=== PATIENT | male | born 1930 | race American Indian/Alaskan Native ===

== ENCOUNTER 2016-10-18 12:41 | Outpatient (CLI) | payer MEDICARE ==
[2016-10-18] MEDS ORDERED: PROVENTIL IH ONE (12:55)
== END 2016-10-18 12:42 | disposition home or self-care (01) ==
LOC: PF 12:41
PROVIDERS: ATTEND Internal Medicine Cardiovascular Disease
DX: J44.9 Chronic obstructive pulmonary disease, unspecified (principal)
CPT/HCPCS: 94060; 94640

== ENCOUNTER 2017-04-30 16:28 | Inpatient (IN) | payer MEDICARE ==
[2017-04-30 17:32] LABS: Anion Gap 18 mmol/L; BUN/Creatinine Ratio 28.18; Blood Urea Nitrogen 31 mg/dL (9-20); Calcium 9.1 mg/dL (8.4-10.2); Carbon Dioxide 27 mmol/L (22-30); Chloride 104.2 mmol/L (98-107); Glucose 86 mg/dL (75-100); Potassium 4.7 mmol/L (3.6-5.0); Sodium 144 mmol/L (137-145)
[2017-04-30 17:43] LABS: Basophils % (Auto) 1.3 % (0.0-1.8); Eosinophils % (Auto) 3.7 % (0.0-4.3); Hematocrit 36.1 % (35.5-45.6); Hemoglobin 11.3 gm/dl (11.8-15.2); Mean Corpuscular HGB Conc 31 % (32-34); Mean Corpuscular Volume 76 fl (84-94); Platelet Count 169 K/mm3 (140-440); Red Blood Count 4.74 M/mm3 (3.65-5.03); Red Cell Distribution Width 16.7 % (13.2-15.2); White Blood Count 2.7 K/mm3 (4.5-11.0)
[2017-04-30 17:52] LABS: Mean Corpuscular Hemoglobin 24 pg (28-32)
--- NOTE | 2017-04-30 21:07 | Cat Scan Report ---
FINAL REPORT PROCEDURE: CT HEAD/BRAIN WO CON TECHNIQUE: Computerized tomography of the head was performed without contrast material. HISTORY: fall, head pain COMPARISON: No prior studies are available for comparison. FINDINGS: Skull and scalp: Normal. Paranasal sinuses: Normal. Ventricles and subarachnoid spaces: Normal. Cerebrum: There is no evidence of acute intracranial hemorrhage, hematoma, infarction, midline displacement or mass effect. Moderate atrophy and periventricular deep white matter changes. There are old lacunar infarctions of the basal ganglia bilaterally.. Cerebellum and brainstem: No evidence of hemorrhage, acute infarction or mass. Vasculature: Normal. Comments: None. IMPRESSION: There is no evidence of an acute intracranial process. Moderate atrophy and periventricular deep white matter changes. Old lacunar infarctions of both basal ganglia are noted.
[2017-04-30] MEDS ORDERED: TYLENOL PO ONE (21:23)
[2017-04-30] MEDS ORDERED: REGLAN IV ONE (22:13)
[2017-04-30] MEDS ORDERED: MORPHINE IV ONE (22:14)
[2017-04-30] MEDS ORDERED: NACL 0.45% 1000 ML 1,000 ML IV SCH (23:45)
--- NOTE | 2017-04-30 23:49 | History and Physical Report ---
History of Present Illness Chief complaint: I dont feel good, History of present illness: 86 YO Male with HTN, CVA, COPD, Dementia present to ED for evaluation. Pt unable to provide history, but history taken from daughter who is at bedside. Pt daughter states that patient has compalined of pain in his chest after his most recent fall. Pt has become increasingly weak and confused over the past 2 months with worsening symptoms over the past week. Pt admits to subjective fever , but no reports of chills, NVD, syncope, vertigo, seizures, skin rashes, head trauma, or recent ill contacts. Pt seen and evaluated in ED and found to have suprapubic tenderness on exam. Past History Past Medical History: COPD, hypertension, stroke Past Surgical History: hernia repair Social history: , Lives alone. denies: smoking, alcohol abuse, prescription drug abuse, IV drug use Family history: hypertension Medications and Allergies Allergies Allergy/AdvReac Type Severity Reaction Status Date / Time Penicillins AdvReac Rash Unverified 10/18/16 12:42 Home Medications Medication Instructions Recorded Confirmed Last Taken Type Albuterol Sulfate [Ventolin HFA] 2 puff IH Q6HR PRN 05/01/17 05/01/17 Unknown History Aspirin 81 mg PO DAILY 05/01/17 05/01/17 Unknown History Budesoni/Formotero 160-4.5(Nf) 2 puff IH DAILY 05/01/17 05/01/17 Unknown History [Symbicort 160-4.5 (Nf)] Metoprolol Xl [Metoprolol 100 mg PO QDAY 05/01/17 05/01/17 Unknown History SUCCINATE ER TAB] Simethicone [Gas Relief] 125 mg PO BID PRN 05/01/17 05/01/17 Unknown History Review of Systems ROS unobtainable: due to mental status Exam - Constitutional Vitals: Temp Pulse Resp BP Pulse Ox 97.3 F L 59 L 18 194/99 96 04/30/17 20:06 04/30/17 20:06 04/30/17 23:10 04/30/17 20:06 04/30/17 20:06 General appearance: Present: mild distress, cachectic, disheveled - EENT Eyes: Present: PERRL ENT: hearing intact, clear oral mucosa - Neck Neck: Present: supple, normal ROM - Respiratory Respiratory effort: normal Respiratory: bilateral: CTA - Cardiovascular Heart Sounds: Present: S1 & S2. Absent: rub, click - Extremities Extremities: pulses symmetrical, No edema Peripheral Pulses: within normal limits - Abdominal General gastrointestinal: Present: soft, non-tender, non-distended, normal bowel sounds Localized gastrointestinal: tender: suprapubic Male genitourinary: Present: normal - Integumentary Integumentary: Present: clear, warm, dry - Musculoskeletal Musculoskeletal: gait normal, strength equal bilaterally - Psychiatric Psychiatric: appropriate mood/affect, no intact judgment & insight, no memory intact - Neurologic Neurologic: CNII-XII intact, moves all extremities Results - Labs CBC & Chem 7: 04/30/17 17:00 04/30/17 17:00 Labs: Abnormal lab results 04/30/17 04/30/17 Range/Units 17:00 17:00 WBC 2.7 L (4.5-11.0) K/mm3 Hgb 11.3 L (11.8-15.2) gm/dl MCV 76 L (84-94) fl MCH 24 L (28-32) pg MCHC 31 L (32-34) % RDW 16.7 H (13.2-15.2) % [place] % (Auto) 12.8 H (0.0-7.3) % Lymph # 0.9 L (1.2-5.4) K/mm3 Seg Neutrophils # 1.3 L (1.8-7.7) K/mm3 BUN 31 H (9-20) mg/dL Assessment and Plan - Patient Problems (1) UTI (urinary tract infection) Current Visit: Yes Status: Acute Qualifiers: Urinary tract infection type: U Hematuria presence: H Indwelling urinary catheter type: I Encounter type: E Plan to address problem: IV abx, ivf, supportive care, (2) Toxic encephalopathy Current Visit: Yes Status: Acute Plan to address problem: IVF, treat uti, bmp in am (3) Severe malnutrition Current Visit: Yes Status: Acute Plan to address problem: encourage increased oral intake, (4) Debility Current Visit: Yes Status: Acute Plan to address problem: bed alarm, fall precautions, (5) Dementia Current Visit: Yes Status: Acute Qualifiers: Dementia type: D Alzheimer's disease onset: A Dementia behavioral disturbance: D Plan to address problem: Aircept qhs, (6) DVT prophylaxis Current Visit: Yes Status: Acute
[2017-04-30] MEDS ORDERED: PROVENTIL IH PRN (23:52)
--- NOTE | 2017-05-01 00:31 | Emergency Department Report ---
ED General Adult HPI - General Chief complaint: Chest Pain Stated complaint: CHEST PAIN/ LEFT ARM NUMB Time Seen by Provider: 04/30/17 20:16 Source: patient Mode of arrival: Ambulatory Limitations: No Limitations - History of Present Illness Initial comments: Patient is an 86-year-old male who presents with chest pain. Patient states that he's been having chest pain for the last 2 days pain is a 5 out 10 minutes looking in the middle of his chest nothing makes it better or worse. It is an achy type of pain it doesn't radiate. Chest pain occurred at rest and is not associated with shortness of breath. Patient states his headache occurred after he fell it as a 6 out of 10 located frontal portion of his head he has no blurry vision no nausea no vomiting. Patient also states that he's has a headache he fell 3 days ago and he has been having a lot more falls lately. Patient also complains of feeling weak. Severity scale (0 -10): 7 - Related Data Home Medications Medication Instructions Recorded Confirmed Last Taken Albuterol Sulfate [Ventolin HFA] 2 puff IH Q6HR PRN 05/01/17 05/01/17 Unknown Aspirin 81 mg PO DAILY 05/01/17 05/01/17 Unknown Budesoni/Formotero 160-4.5(Nf) 2 puff IH DAILY 05/01/17 05/01/17 Unknown [Symbicort 160-4.5 (Nf)] Metoprolol Xl [Metoprolol 100 mg PO QDAY 05/01/17 05/01/17 Unknown SUCCINATE ER TAB] Simethicone [Gas Relief] 125 mg PO BID PRN 05/01/17 05/01/17 Unknown Allergies Allergy/AdvReac Type Severity Reaction Status Date / Time Penicillins AdvReac Rash Unverified 10/18/16 12:42 ED Review of Systems ROS: Stated complaint: CHEST PAIN/ LEFT ARM NUMB Other details as noted in HPI Constitutional: weakness Eyes: denies: eye pain, eye discharge, vision change ENT: as per HPI Respiratory: no symptoms reported Cardiovascular: chest pain Endocrine: no symptoms reported Gastrointestinal: denies: abdominal pain, nausea, diarrhea Genitourinary: denies: urgency, dysuria Musculoskeletal: arthralgia Skin: denies: rash, lesions Neurological: headache Psychiatric: denies: anxiety, depression Hematological/Lymphatic: denies: easy bleeding, easy bruising ED Past Medical Hx - Past Medical History Previous Medical History?: Yes Hx Hypertension: Yes Hx CVA: Yes Hx COPD: Yes - Surgical History Past Surgical History?: Yes Additional Surgical History: hernia,back - Social History Smoking Status: Never Smoker Substance Use Type: Alcohol - Medications Home Medications: Home Medications Medication Instructions Recorded Confirmed Last Taken Type Albuterol Sulfate [Ventolin HFA] 2 puff IH Q6HR PRN 05/01/17 05/01/17 Unknown History Aspirin 81 mg PO DAILY 05/01/17 05/01/17 Unknown History Budesoni/Formotero 160-4.5(Nf) 2 puff IH DAILY 05/01/17 05/01/17 Unknown History [Symbicort 160-4.5 (Nf)] Metoprolol Xl [Metoprolol 100 mg PO QDAY 05/01/17 05/01/17 Unknown History SUCCINATE ER TAB] Simethicone [Gas Relief] 125 mg PO BID PRN 05/01/17 05/01/17 Unknown History ED Physical Exam - General Limitations: No Limitations General appearance: alert - Head Head exam: Present: atraumatic, normocephalic - Eye Eye exam: Present: normal appearance, PERRL, EOMI - ENT ENT exam: Present: normal exam - Neck Neck exam: Present: normal inspection - Respiratory Respiratory exam: Present: normal lung sounds bilaterally - Cardiovascular Cardiovascular Exam: Present: regular rate - GI/Abdominal GI/Abdominal exam: Present: soft. Absent: distended - Rectal Rectal exam: Present: deferred - Extremities Exam Extremities exam: Present: normal inspection - Back Exam Back exam: Present: normal inspection - Neurological Exam Neurological exam: Present: alert, oriented X3, CN II-XII intact - Psychiatric Psychiatric exam: Present: normal affect - Skin Skin exam: Present: warm ED Course Vital Signs 04/30/17 04/30/17 04/30/17 16:48 20:00 20:06 Temperature 97.9 F 97.3 F L Pulse Rate 70 59 L Respiratory 16 21 21 Rate Blood Pressure 154/98 Blood Pressure 194/99 [Left] O2 Sat by Pulse 99 96 96 Oximetry 04/30/17 04/30/17 21:32 23:10 Temperature Pulse Rate Respiratory 21 18 Rate Blood Pressure Blood Pressure [Left] O2 Sat by Pulse Oximetry - Reevaluation(s) Reevaluation #1: 05/01/17 00:35 Patient states that headache is better assess the patient that due to the frequent falls and his chest pain he will be admitted to the hospital. Patient understands and verbalizes understanding and agrees with plan. ED Medical Decision Making - Lab Data Result diagrams: 04/30/17 17:00 04/30/17 17:00 Laboratory Results - last 24 hr 04/30/17 04/30/17 04/30/17 17:00 17:00 22:25 WBC 2.7 L RBC 4.74 Hgb 11.3 L Hct 36.1 MCV 76 L MCH 24 L MCHC 31 L RDW 16.7 H Plt Count 169 Lymph % (Auto) 33.5 [place] % (Auto) 12.8 H Eos % (Auto) 3.7 Baso % (Auto) 1.3 Lymph # 0.9 L [place] # 0.3 Eos # 0.1 Baso # 0.0 Seg Neutrophils % 48.7 Seg Neutrophils # 1.3 L Sodium 144 Potassium 4.7 Chloride 104.2 Carbon Dioxide 27 Anion Gap 18 BUN 31 H Creatinine 1.1 Estimated GFR > 60 BUN/Creatinine Ratio 28.18 Glucose 86 Calcium 9.1 Troponin T < 0.010 < 0.010 - EKG Data 05/01/17 00:36 EKG shows sinus rhythm with marked sinus arrhythmia with LVH no ST segment elevations or T-wave inversions - Radiology Data Radiology results: report reviewed, image reviewed CT head shows no acute intracranial abnormality or patient has old lacunar infarctions. - Medical Decision Making Chief medical diagnosis: Intracranial bleed Differential diagnosis non-STEMI, metabolic abnormality, medication side effect , deconditioning, pneumonia, UTI We'll get CBC CMP troponin EKG CT head Patient's daughter states that patient lives by himself and has multiple falls. He is also still complaining of headache will admit patient for deconditioning Critical care attestation.: If time is entered above; I have spent that time in minutes in the direct care of this critically ill patient, excluding procedure time. ED Disposition Clinical Impression: Frequent falls, Uremia Headache Qualifiers: Headache type: post-traumatic Headache chronicity pattern: acute headache Intractability: not intractable Qualified Code(s): G44.319 - Acute post- traumatic headache, not intractable Disposition: DC-09 OP ADMIT IP TO THIS HOSP Is pt being admited?: Yes Does the pt Need Aspirin: No Condition: Stable Referrals: PRIMARY CARE, [Primary Care Provider] - 3-5 Days Time of Disposition: 00:47
[2017-05-01] MEDS ORDERED: NACL 0.45% 1000 ML 1,000 ML IV ONE (01:04)
[2017-05-01 01:35] LABS: Bilirubin,Urine NEG (Negative); Blood,Urine SM (Negative); Ketones,Urine NEG (Negative); Leukocyte Esterase,Urine NEG (Negative); Nitrite,Urine NEG (Negative); Protein,Urine <15 mg/dL mg/dL (Negative); Urobilinogen,Urine < 2.0 mg/dL (<2.0); WBC,Urine < 1.0 /HPF (0.0-6.0)
[2017-05-01] MEDS ORDERED: LEVAQUIN 500MG/100ML 500 MG/100 ML BAG IV SCH (10:00)
--- NOTE | 2017-05-01 13:54 | Progress Note ---
Subjective Date of service: 05/01/17 Interval history: Assessment and plan: Altered mental status: Unclear if this is new or baseline. Possibly worsened secondary to dehydration He is a poor historian and confused. I would stop antibiotic as there is no evidence of any UTI History of dementia: Alzheimer's versus vascular. Questionable history of old stroke. Patient moves all his extremities History of hypertension: Continue beta lizzie COPD: Continue albuterol neb treatments as needed. Continue Symbicort Leukopenia: Most likely this is his baseline. We will recheck CBC in the morning Dehydration: We will start on IV fluids and monitor his renal function Subjective: Patient is awake alert but quite confused. Not in any distress. Poor historian. Offers no specific complaints 11 point review of systems is negative Objective - Constitutional Vitals: Vital Signs - 12hr 05/01/17 05/01/17 05/01/17 02:08 07:45 10:00 Temperature 98.1 F Pulse Rate 70 Respiratory 18 18 Rate Blood Pressure 157/84 O2 Sat by Pulse 96 96 96 Oximetry 05/01/17 10:08 Temperature Pulse Rate Respiratory 16 Rate Blood Pressure O2 Sat by Pulse 95 Oximetry General appearance: Present: no acute distress - EENT Eyes: PERRL, EOM intact ENT: hearing intact, clear oral mucosa, no thrush - Neck Neck: supple, normal ROM - Respiratory Respiratory effort: normal Respiratory: bilateral: CTA - Cardiovascular Rhythm: regular Heart Sounds: Present: S1 & S2 Extremities: No edema - Gastrointestinal General gastrointestinal: Present: soft, non-tender. Absent: hepatomegaly, splenomegaly Rectal Exam: deferred - Integumentary Integumentary: clear - Musculoskeletal Musculoskeletal: strength equal bilaterally - Neurologic Neurologic: no focal deficits - Labs CBC & Chem 7: 04/30/17 17:00 04/30/17 17:00
[2017-05-01] MEDS: LOPRESSOR PO SCH ×2 (20:17→21:30)
[2017-05-01] MEDS: ARICEPT PO SCH (21:31)
[2017-05-01] MEDS: TYLENOL PO PRN (21:31)
[2017-05-02] MEDS ORDERED: ATIVAN IV ONE (05:12)
[2017-05-02 08:45] LABS: Hematocrit 34.9 % (35.5-45.6); Hemoglobin 11.2 gm/dl (11.8-15.2); Mean Corpuscular HGB Conc 32 % (32-34); Mean Corpuscular Volume 76 fl (84-94); Platelet Count 169 K/mm3 (140-440); Red Cell Distribution Width 16.3 % (13.2-15.2)
[2017-05-02 08:54] LABS: Mean Corpuscular Hemoglobin 24 pg (28-32)
[2017-05-02 09:03] LABS: Anion Gap 18 mmol/L; BUN/Creatinine Ratio 26.66; Blood Urea Nitrogen 24 mg/dL (9-20); Carbon Dioxide 24 mmol/L (22-30); Chloride 101.6 mmol/L (98-107); Glucose 80 mg/dL (75-100); Potassium 4.8 mmol/L (3.6-5.0); Sodium 139 mmol/L (137-145)
[2017-05-02] MEDS: LOPRESSOR PO SCH ×2 (09:12→22:42)
--- NOTE | 2017-05-02 10:16 | Progress Note ---
Assessment and Plan Assessment and plan: 6 YO Male with HTN, CVA, COPD, Dementia present to ED for evaluation. Pt unable to provide history, but history taken from daughter who is at bedside. Pt daughter states that patient has compalined of pain in his chest after his most recent fall. Pt has become increasingly weak and confused over the past 2 months with worsening symptoms over the past week. Pt admits to subjective fever , but no reports of chills, NVD, syncope, vertigo, seizures, skin rashes, head trauma, or recent ill contacts. Pt seen and evaluated in ED and found to have suprapubic tenderness on exam. Metabolic Encephalopathy: Probably baseline due to Dementia. Possibly worsened secondary to dehydration He is a poor historian and confused. no further indication abx History of dementia: Alzheimer's versus vascular. Questionable history of old stroke. Patient moves all his extremities History of hypertension: Continue beta lizzie COPD: Continue albuterol neb treatments as needed. Continue Symbicort Leukopenia: Resolved Dehydration: will stop IV Fluids, safety. Discussed with nursing about moving patient to clear eye sight. Dispo: anticipate in AM. pending PT/OT eval History Interval history: Patient seen and examined today, in no acute distress, remains confused, appears to be his baseline from report reviewed, unsteady gait noted but patient ambulating Hospitalist Physical - Physical exam Narrative exam: VITAL SIGNS: Reviewed. GENERAL: The patient appeared normally developed otherwise cachetic. Vital signs as documented. HEAD: No signs of head trauma. Temporal wasting EYES: Pupils are equal. Extraocular motions intact. EARS: Hearing grossly intact. MOUTH: Oropharynx is normal. NECK: No adenopathy, no JVD. CHEST: Chest with clear breath sounds bilaterally. No wheezes, rales, or rhonchi. CARDIAC: Regular rate and rhythm. S1 and S2, without murmurs, gallops, or rubs. VASCULAR: No Edema. Peripheral pulses normal and equal in all extremities. ABDOMEN: Soft, without detectable tenderness. No sign of distention. No rebound or guarding, and no masses palpated. Bowel Sounds normal. MUSCULOSKELETAL: Good range of motion of all major joints. Extremities without clubbing, cyanosis or edema. NEUROLOGIC EXAM: Alert and oriented x 3. No focal sensory or strength deficits. Speech normal. Follows commands. PSYCHIATRIC: Mood normal. SKIN: No rash or lesions. - Constitutional Vitals: Temp Pulse Resp BP Pulse Ox 98.6 F 66 20 183/101 96 05/02/17 08:47 05/02/17 09:12 05/02/17 08:47 05/02/17 09:12 05/01/17 22:00 General appearance: Present: no acute distress Results - Labs CBC & Chem 7: 05/02/17 08:30 05/02/17 08:30 Labs: Laboratory Last Values WBC 5.0 K/mm3 (4.5-11.0) 05/02/17 08:30 RBC 4.60 M/mm3 (3.65-5.03) 05/02/17 08:30 Hgb 11.2 gm/dl (11.8-15.2) L 05/02/17 08:30 Hct 34.9 % (35.5-45.6) L 05/02/17 08:30 MCV 76 fl (84-94) L 05/02/17 08:30 MCH 24 pg (28-32) L 05/02/17 08:30 MCHC 32 % (32-34) 05/02/17 08:30 RDW 16.3 % (13.2-15.2) H 05/02/17 08:30 Plt Count 169 K/mm3 (140-440) 05/02/17 08:30 Lymph % (Auto) 33.5 % (13.4-35.0) 04/30/17 17:00 [place] % (Auto) 12.8 % (0.0-7.3) H 04/30/17 17:00 Eos % (Auto) 3.7 % (0.0-4.3) 04/30/17 17:00 Baso % (Auto) 1.3 % (0.0-1.8) 04/30/17 17:00 Lymph # 0.9 K/mm3 (1.2-5.4) L 04/30/17 17:00 [place] # 0.3 K/mm3 (0.0-0.8) 04/30/17 17:00 Eos # 0.1 K/mm3 (0.0-0.4) 04/30/17 17:00 Baso # 0.0 K/mm3 (0.0-0.1) 04/30/17 17:00 Seg Neutrophils % 48.7 % (40.0-70.0) 04/30/17 17:00 Seg Neutrophils # 1.3 K/mm3 (1.8-7.7) L 04/30/17 17:00 Sodium 139 mmol/L (137-145) 05/02/17 08:30 Potassium 4.8 mmol/L (3.6-5.0) 05/02/17 08:30 Chloride 101.6 mmol/L (98-107) 05/02/17 08:30 Carbon Dioxide 24 mmol/L (22-30) 05/02/17 08:30 Anion Gap 18 mmol/L 05/02/17 08:30 BUN 24 mg/dL (9-20) H 05/02/17 08:30 Creatinine 0.9 mg/dL (0.8-1.5) 05/02/17 08:30 Estimated GFR > 60 ml/min 05/02/17 08:30 BUN/Creatinine Ratio 26.66 % 05/02/17 08:30 Glucose 80 mg/dL (75-100) 05/02/17 08:30 Calcium 9.0 mg/dL (8.4-10.2) 05/02/17 08:30 Troponin T < 0.010 ng/mL (0.00-0.029) 04/30/17 23:52 Urine Color Straw (Yellow) 05/01/17 01:15 Urine Turbidity Clear (Clear) 05/01/17 01:15 Urine pH 7.0 (5.0-7.0) 05/01/17 01:15 Ur Specific [place] 1.009 (1.003-1.030) 05/01/17 01:15 Urine Protein <15 mg/dl mg/dL (Negative) 05/01/17 01:15 Urine Glucose (UA) Neg mg/dL (Negative) 05/01/17 01:15 Urine Ketones Neg mg/dL (Negative) 05/01/17 01:15 Urine Blood Sm (Negative) 05/01/17 01:15 Urine Nitrite Neg (Negative) 05/01/17 01:15 Urine Bilirubin Neg (Negative) 05/01/17 01:15 Urine Urobilinogen < 2.0 mg/dL (<2.0) 05/01/17 01:15 Ur Leukocyte Esterase Neg (Negative) 05/01/17 01:15 Urine WBC (Auto) < 1.0 /HPF (0.0-6.0) 05/01/17 01:15 Urine RBC (Auto) 4.0 /HPF (0.0-6.0) 05/01/17 01:15
--- NOTE | 2017-05-02 10:16 | Discharge Summary ---
Providers - Providers Date of Admission: 04/30/17 23:52 Date of discharge: 05/03/17 Attending physician: PATRICIA SCHWARTZ MD 04/30/17 23:55 Consult to Case Management [CONS] Routine Services Needed at Discharge: Other Additional Physician Instructions: please send out for placement as per family request 05/01/17 13:25 Physical Therapy Evaluation and Treat [CONS] Routine Comment: PT USES [facility] Reason For Exam: PT HAS MULTIPLE FALLS AT HOME Primary care physician: GENERAL STUDIES PROGRAM CHAIR Hospitalization Condition: Stable Hospital course: Family refused SNF. Aware that patient requires 24 hour supervision. Disposition: DC/[place]-06 HOME UNDER HOME HLTH Time spent for discharge: 35 mins Exam - Constitutional Vitals: Temp Pulse Resp BP Pulse Ox 98.6 F 66 20 183/101 96 05/02/17 08:47 05/02/17 09:12 05/02/17 08:47 05/02/17 09:12 05/01/17 22:00 Plan Activity: advance as tolerated, fall precautions Diet: per dietitian instruction Special Instructions: physical therapy Follow up with: BERNARDA HASSAN MD [Primary Care Provider] - 3-5 Days
[2017-05-02] MEDS: IMDUR PO SCH (13:39)
[2017-05-02] MEDS: ARICEPT PO SCH (22:42)
[2017-05-03] MEDS: TYLENOL PO PRN (08:02)
[2017-05-03] MEDS: IMDUR PO SCH (13:07)
[2017-05-03] MEDS: LOPRESSOR PO SCH ×2 (13:08→22:55)
--- NOTE | 2017-05-03 16:15 | Progress Note ---
Assessment and Plan Assessment and plan: 6 YO Male with HTN, CVA, COPD, Dementia present to ED for evaluation. Pt unable to provide history, but history taken from daughter who is at bedside. Pt daughter states that patient has compalined of pain in his chest after his most recent fall. Pt has become increasingly weak and confused over the past 2 months with worsening symptoms over the past week. Pt admits to subjective fever , but no reports of chills, NVD, syncope, vertigo, seizures, skin rashes, head trauma, or recent ill contacts. Pt seen and evaluated in ED and found to have suprapubic tenderness on exam. Hematuria: check U/A, renal u/s and bladder also. Urology consult Metabolic Encephalopathy: Probably baseline due to Dementia. Possibly worsened secondary to dehydration He is a poor historian and confused. no further indication abx History of dementia: Alzheimer's versus vascular. Questionable history of old stroke. Patient moves all his extremities History of hypertension: Continue beta lizzie COPD: Continue albuterol neb treatments as needed. Continue Symbicort Leukopenia: Resolved Dehydration: Resolved Dispo: anticipate in AM. pending PT/OT eval History Interval history: Patient seen and examined today, in no acute distress, mental status improved today. now with hematuria Hospitalist Physical - Physical exam Narrative exam: VITAL SIGNS: Reviewed. GENERAL: The patient appeared normally developed otherwise cachetic. Vital signs as documented. HEAD: No signs of head trauma. Temporal wasting EYES: Pupils are equal. Extraocular motions intact. EARS: Hearing grossly intact. MOUTH: Oropharynx is normal. NECK: No adenopathy, no JVD. CHEST: Chest with clear breath sounds bilaterally. No wheezes, rales, or rhonchi. CARDIAC: Regular rate and rhythm. S1 and S2, without murmurs, gallops, or rubs. VASCULAR: No Edema. Peripheral pulses normal and equal in all extremities. ABDOMEN: Soft, without detectable tenderness. No sign of distention. No rebound or guarding, and no masses palpated. Bowel Sounds normal. MUSCULOSKELETAL: Good range of motion of all major joints. Extremities without clubbing, cyanosis or edema. NEUROLOGIC EXAM: Alert and oriented x 2. No focal sensory or strength deficits. Speech normal. Follows commands. PSYCHIATRIC: Mood normal. SKIN: No rash or lesions. - Constitutional Vitals: Temp Pulse Resp BP Pulse Ox 97.9 F 82 18 120/74 98 05/03/17 10:00 05/03/17 13:08 05/03/17 10:00 05/03/17 13:08 05/03/17 10:00 General appearance: Present: no acute distress Results - Labs CBC & Chem 7: 05/02/17 08:30 05/02/17 08:30 Labs: Laboratory Last Values WBC 5.0 K/mm3 (4.5-11.0) 05/02/17 08:30 RBC 4.60 M/mm3 (3.65-5.03) 05/02/17 08:30 Hgb 11.2 gm/dl (11.8-15.2) L 05/02/17 08:30 Hct 34.9 % (35.5-45.6) L 05/02/17 08:30 MCV 76 fl (84-94) L 05/02/17 08:30 MCH 24 pg (28-32) L 05/02/17 08:30 MCHC 32 % (32-34) 05/02/17 08:30 RDW 16.3 % (13.2-15.2) H 05/02/17 08:30 Plt Count 169 K/mm3 (140-440) 05/02/17 08:30 Lymph % (Auto) 33.5 % (13.4-35.0) 04/30/17 17:00 [place] % (Auto) 12.8 % (0.0-7.3) H 04/30/17 17:00 Eos % (Auto) 3.7 % (0.0-4.3) 04/30/17 17:00 Baso % (Auto) 1.3 % (0.0-1.8) 04/30/17 17:00 Lymph # 0.9 K/mm3 (1.2-5.4) L 04/30/17 17:00 [place] # 0.3 K/mm3 (0.0-0.8) 04/30/17 17:00 Eos # 0.1 K/mm3 (0.0-0.4) 04/30/17 17:00 Baso # 0.0 K/mm3 (0.0-0.1) 04/30/17 17:00 Seg Neutrophils % 48.7 % (40.0-70.0) 04/30/17 17:00 Seg Neutrophils # 1.3 K/mm3 (1.8-7.7) L 04/30/17 17:00 Sodium 139 mmol/L (137-145) 05/02/17 08:30 Potassium 4.8 mmol/L (3.6-5.0) 05/02/17 08:30 Chloride 101.6 mmol/L (98-107) 05/02/17 08:30 Carbon Dioxide 24 mmol/L (22-30) 05/02/17 08:30 Anion Gap 18 mmol/L 05/02/17 08:30 BUN 24 mg/dL (9-20) H 05/02/17 08:30 Creatinine 0.9 mg/dL (0.8-1.5) 05/02/17 08:30 Estimated GFR > 60 ml/min 05/02/17 08:30 BUN/Creatinine Ratio 26.66 % 05/02/17 08:30 Glucose 80 mg/dL (75-100) 05/02/17 08:30 Calcium 9.0 mg/dL (8.4-10.2) 05/02/17 08:30 Troponin T < 0.010 ng/mL (0.00-0.029) 04/30/17 23:52 Urine Color Straw (Yellow) 05/01/17 01:15 Urine Turbidity Clear (Clear) 05/01/17 01:15 Urine pH 7.0 (5.0-7.0) 05/01/17 01:15 Ur Specific [place] 1.009 (1.003-1.030) 05/01/17 01:15 Urine Protein <15 mg/dl mg/dL (Negative) 05/01/17 01:15 Urine Glucose (UA) Neg mg/dL (Negative) 05/01/17 01:15 Urine Ketones Neg mg/dL (Negative) 05/01/17 01:15 Urine Blood Sm (Negative) 05/01/17 01:15 Urine Nitrite Neg (Negative) 05/01/17 01:15 Urine Bilirubin Neg (Negative) 05/01/17 01:15 Urine Urobilinogen < 2.0 mg/dL (<2.0) 05/01/17 01:15 Ur Leukocyte Esterase Neg (Negative) 05/01/17 01:15 Urine WBC (Auto) < 1.0 /HPF (0.0-6.0) 05/01/17 01:15 Urine RBC (Auto) 4.0 /HPF (0.0-6.0) 05/01/17 01:15
--- NOTE | 2017-05-03 17:23 | Consultation ---
History of Present Illness - Reason for Consult Consult date: 05/03/17 - History of Present Illness CC: HEMATURIA 86 YO Male with HTN, CVA, COPD, Dementia present to ED for evaluation. Pt unable to provide history, but history taken from daughter who is at bedside. Pt daughter states that patient has compalined of pain in his chest after his most recent fall. Pt has become increasingly weak and confused over the past 2 months with worsening symptoms over the past week. Pt admits to subjective fever , but no reports of chills, NVD, syncope, vertigo, seizures, skin rashes, head trauma, or recent ill contacts. nurse at bedside episode gross hematuria abd soft normal phallus & testes A/P HEMATURIA CTAP will eventually need cysto brochure given Past History Past Medical History: COPD, hypertension, stroke Past Surgical History: hernia repair Social history: , Lives alone. denies: smoking, alcohol abuse, prescription drug abuse, IV drug use Family history: hypertension Medications and Allergies Allergies Allergy/AdvReac Type Severity Reaction Status Date / Time Penicillins AdvReac Rash Unverified 10/18/16 12:42 Home Medications Medication Instructions Recorded Confirmed Last Taken Type Albuterol Sulfate [Ventolin HFA] 2 puff IH Q6HR PRN 05/01/17 05/01/17 Unknown History Aspirin 81 mg PO DAILY 05/01/17 05/01/17 Unknown History Budesoni/Formotero 160-4.5(Nf) 2 puff IH DAILY 05/01/17 05/01/17 Unknown History [Symbicort 160-4.5 (Nf)] Metoprolol Xl [Metoprolol 100 mg PO QDAY 05/01/17 05/01/17 Unknown History SUCCINATE ER TAB] Simethicone [Gas Relief] 125 mg PO BID PRN 05/01/17 05/01/17 Unknown History Active Meds: Active Medications Acetaminophen (Tylenol) 650 mg PO Q4H PRN PRN Reason: Pain MILD(1-3)/Fever >100.5/LEONARD Last Admin: 05/03/17 08:02 Dose: 650 mg Albuterol (Proventil) 2.5 mg IH Q4HRT PRN PRN Reason: Shortness Of Breath Donepezil HCl (Aricept) 5 mg PO QHS NIDHI Last Admin: 08/01/17 22:42 Dose: 5 mg Isosorbide Mononitrate (Imdur) 60 mg PO QDAY [facility] Last Admin: 05/03/17 13:07 Dose: 60 mg Metoprolol Tartrate (Lopressor) 25 mg PO BID [facility] Last Admin: 05/03/17 13:08 Dose: 25 mg Exam - Constitutional Vitals: Temp Pulse Resp BP Pulse Ox 97.9 F 82 18 120/74 98 05/03/17 10:00 05/03/17 13:08 05/03/17 10:00 05/03/17 13:08 05/03/17 10:00 Results - Labs CBC & Chem 7: 05/02/17 08:30 05/02/17 08:30
--- NOTE | 2017-05-03 19:24 | Cat Scan Report ---
FINAL REPORT EXAM: CT ABDOMEN PELVIS WO CON HISTORY: hematuria TECHNIQUE: Unenhanced stone protocol CT of the abdomen and pelvis at 1.25 millimeter axial increments. Coronal and sagittal reconstruction was also performed. PRIORS: None. FINDINGS: There is a multilobulated soft tissue density focus in the posterior aspect of the bladder suspicious for mass. This measures 4.0 x 6.6 x 4.8 cm (axial image 214, series 2). Asymmetric wall thickening of the bladder is noted anteriorly. The kidneys demonstrate no evidence for hydronephrosis or calculus. No ureteral calculi are noted. However, both kidneys demonstrate numerous hypodense rounded foci suggesting cysts. The largest is in the lower pole right kidney measuring 4.0 x 3.9 cm (axial image 102, series 2). In the posterior lower pole of the right kidney, there is a rounded hyperdense focus measuring 1.7 x 1.4 cm (axial image 86, series 2). Although this probably represents a hemorrhagic cyst, possible soft tissue mass is not excluded. Ultrasound or MRI is recommended. Otherwise, within the limits of a noncontrast exam, the liver, spleen, pancreas, gallbladder, and adrenal glands are unremarkable. No evidence for retroperitoneal or pelvic lymphadenopathy is seen. The bowel loops have normal caliber. No fluid collection, inflammatory change, or free air is seen within the abdomen or pelvis. Moderate calcification of a normal sized aorta is seen. Within the pelvis, the prostate is enlarged measuring 6.3 x 5.3 x 4.8 cm (axial image 236, series 2). This creates inferior mass impression on the bladder. Seminal vesicles are prominent bilaterally. A small left inguinal hernia is present. There are bilateral hydroceles identified in the scrotum. Images through the upper abdomen include the lung bases which demonstrate a 1 cm uncalcified nodule in the left lower lobe (axial image 8). There is focal herniation in the posterior right hemidiaphragm. Through this her herniation, small amount of fat is noted in the right posterior costophrenic angle. Bony structures show postsurgical changes in the upper lumbar spine at L1-L3 with hardware in place. This hardware causes beam hardening artifact into the adjacent paraspinal region. There is severe disc space narrowing L4 through S1. A moderate levoscoliosis centered around the thoracolumbar junction is seen. IMPRESSION: 1. No evidence for renal calculi or renal obstruction. 2. Soft tissue density in the posterior aspect of the bladder suspicious for mass and possible neoplasm. 3. Enlarged prostate gland 4. Multiple bilateral renal cysts which are predominantly low in density. One of these is intermediate in density in the lower pole right kidney and should be confirmed as a hemorrhagic cyst versus mass using ultrasound or MRI. 5. Noncalcified nodule in the left lower lobe which is nonspecific. CT of the chest is recommended. 6. Postsurgical changes in the upper lumbar spine.
[2017-05-03 21:24] LABS: Bacteria,Urine 4+ /HPF (Negative)
[2017-05-03 21:31] LABS: Bilirubin,Urine Negative (Negative); Blood,Urine Moderate (Negative); Ketones,Urine Negative (Negative); Leukocyte Esterase,Urine Negative (Negative); Nitrite,Urine Negative (Negative); Urobilinogen,Urine < 0.2 mg/dL (<2.0)
[2017-05-03] MEDS: ARICEPT PO SCH (22:55)
--- NOTE | 2017-05-04 08:11 | Ultrasound Report ---
ULTRASOUND RENAL BILATERAL HISTORY: Gross hematuria. TECHNIQUE: transabdominal ultrasound with color Doppler interrogation. FINDINGS: The right kidney measures 10.1 x 4.2 x 4.8cm. Right renal cortex: 1.2cm. 5 cysts are identified in the right kidney. The largest cyst measures 5 cm at the inferior pole. A 2 cm cyst near mid pole contains debris and is consistent with a hemorrhagic cyst. The left kidney measures 10.4 x 4.5 x 4.1cm. Left renal cortex: 1.5cm. 2 cm cyst is identified in the superior pole of the left kidney. No evidence for renal mass, shadowing calculi or hydronephrosis. No perinephric fluid. The echogenicity of the kidneys is within normal limits. There is a large echogenic mass filling the bladder measuring 4.3 x 3.4 cm. No internal perfusion is demonstrated on color Doppler interrogation. This probably represents a thrombus. IMPRESSION: Bilateral renal cysts as described. No nephrolithiasis is appreciated. No hydronephrosis. Bladder mass versus thrombus. I favor thrombus.
[2017-05-04 09:55] LABS: Hematocrit 30.5 % (35.5-45.6); Hemoglobin 9.9 gm/dl (11.8-15.2)
[2017-05-04] MEDS: IMDUR PO SCH (10:18)
[2017-05-04] MEDS: LOPRESSOR PO SCH ×2 (10:19→21:29)
--- NOTE | 2017-05-04 18:20 | Progress Note ---
Subjective Date of service: 05/04/17 Interval history: CC: HEMATURIA 86 YO Male with HTN, CVA, COPD, Dementia present to ED for evaluation. Pt unable to provide history, but history taken from daughter who is at bedside. Pt daughter states that patient has compalined of pain in his chest after his most recent fall. Pt has become increasingly weak and confused over the past 2 months with worsening symptoms over the past week. Pt admits to subjective fever , but no reports of chills, NVD, syncope, vertigo, seizures, skin rashes, head trauma, or recent ill contacts. nurse at bedside- - consent obtained from daughter - Ms. Craven episode gross hematuria abd soft normal phallus & testes CTAP---BPH, BLADDER MASS, RENAL CYST, DJD SPINE, LUNG LESION LEFT NEEDS EVAL NOW OR OUTPT A/P HEMATURIA tomorrow - cysto brochure given Objective - Constitutional Vitals: Vital Signs - 12hr 05/04/17 05/04/17 05/04/17 10:00 10:18 10:19 Temperature 98 F Pulse Rate 80 80 80 Pulse Rate [ 80 Apical] Respiratory 17 Rate Blood Pressure 141/60 141/60 141/60 O2 Sat by Pulse 97 Oximetry - Labs CBC & Chem 7: 05/04/17 09:26 05/02/17 08:30 Labs: Abnormal lab results 05/03/17 05/04/17 Range/Units 21:00 09:26 Hgb 9.9 L (11.8-15.2) gm/dl Hct 30.5 L (35.5-45.6) % Urine Blood Moderate A (Negative) Urine WBC (Auto) 14.0 H (0.0-6.0) /HPF
--- NOTE | 2017-05-04 19:02 | Progress Note ---
Assessment and Plan Assessment and plan: 6 YO Male with HTN, CVA, COPD, Dementia present to ED for evaluation. Pt unable to provide history, but history taken from daughter who is at bedside. Pt daughter states that patient has compalined of pain in his chest after his most recent fall. Pt has become increasingly weak and confused over the past 2 months with worsening symptoms over the past week. Pt admits to subjective fever , but no reports of chills, NVD, syncope, vertigo, seizures, skin rashes, head trauma, or recent ill contacts. Pt seen and evaluated in ED and found to have suprapubic tenderness on exam. Hematuria: cystoscopy in am, explained to family BPH. Urology consult NOTED. Left lung nodule, with right subscapular soft tissue density- CT chest. MRI back. No evidence of sepsis. Per patient has been present for years, daughter states she has not seen it. Metabolic Encephalopathy: Probably baseline due to Dementia. IMPROVED History of dementia: Alzheimer's versus vascular. Questionable history of old stroke. Patient moves all his extremities History of hypertension: Continue beta lizzie COPD: Continue albuterol neb treatments as needed. Continue Symbicort Leukopenia: Resolved Dehydration: Resolved History Interval history: Patient seen and examined today, in no acute distress, still with hematouria Hospitalist Physical - Physical exam Narrative exam: VITAL SIGNS: Reviewed. GENERAL: The patient appeared normally developed otherwise cachetic. Vital signs as documented. HEAD: No signs of head trauma. Temporal wasting EYES: Pupils are equal. Extraocular motions intact. EARS: Hearing grossly intact. MOUTH: Oropharynx is normal. NECK: No adenopathy, no JVD. CHEST: Chest with clear breath sounds bilaterally. No wheezes, rales, or rhonchi. CARDIAC: Regular rate and rhythm. S1 and S2, without murmurs, gallops, or rubs. VASCULAR: No Edema. Peripheral pulses normal and equal in all extremities. ABDOMEN: Soft, without detectable tenderness. No sign of distention. No rebound or guarding, and no masses palpated. Bowel Sounds normal. MUSCULOSKELETAL: Good range of motion of all major joints. Extremities without clubbing, cyanosis or edema. NEUROLOGIC EXAM: Alert and oriented x 2. No focal sensory or strength deficits. Speech normal. Follows commands. PSYCHIATRIC: Mood normal. SKIN: No rash or lesions. - Constitutional Vitals: Temp Pulse Resp BP Pulse Ox 98 F 80 17 141/60 97 05/04/17 10:00 05/04/17 10:19 05/04/17 10:00 05/04/17 10:19 05/04/17 10:00 General appearance: Present: no acute distress Results - Labs CBC & Chem 7: 05/04/17 09:26 05/02/17 08:30 Labs: Laboratory Last Values WBC 5.0 K/mm3 (4.5-11.0) 05/02/17 08:30 RBC 4.60 M/mm3 (3.65-5.03) 05/02/17 08:30 Hgb 9.9 gm/dl (11.8-15.2) L 05/04/17 09:26 Hct 30.5 % (35.5-45.6) L 05/04/17 09:26 MCV 76 fl (84-94) L 05/02/17 08:30 MCH 24 pg (28-32) L 05/02/17 08:30 MCHC 32 % (32-34) 05/02/17 08:30 RDW 16.3 % (13.2-15.2) H 05/02/17 08:30 Plt Count 169 K/mm3 (140-440) 05/02/17 08:30 Lymph % (Auto) 33.5 % (13.4-35.0) 04/30/17 17:00 [place] % (Auto) 12.8 % (0.0-7.3) H 04/30/17 17:00 Eos % (Auto) 3.7 % (0.0-4.3) 04/30/17 17:00 Baso % (Auto) 1.3 % (0.0-1.8) 04/30/17 17:00 Lymph # 0.9 K/mm3 (1.2-5.4) L 04/30/17 17:00 [place] # 0.3 K/mm3 (0.0-0.8) 04/30/17 17:00 Eos # 0.1 K/mm3 (0.0-0.4) 04/30/17 17:00 Baso # 0.0 K/mm3 (0.0-0.1) 04/30/17 17:00 Seg Neutrophils % 48.7 % (40.0-70.0) 04/30/17 17:00 Seg Neutrophils # 1.3 K/mm3 (1.8-7.7) L 04/30/17 17:00 Sodium 139 mmol/L (137-145) 05/02/17 08:30 Potassium 4.8 mmol/L (3.6-5.0) 05/02/17 08:30 Chloride 101.6 mmol/L (98-107) 05/02/17 08:30 Carbon Dioxide 24 mmol/L (22-30) 05/02/17 08:30 Anion Gap 18 mmol/L 05/02/17 08:30 BUN 24 mg/dL (9-20) H 05/02/17 08:30 Creatinine 0.9 mg/dL (0.8-1.5) 05/02/17 08:30 Estimated GFR > 60 ml/min 05/02/17 08:30 BUN/Creatinine Ratio 26.66 % 05/02/17 08:30 Glucose 80 mg/dL (75-100) 05/02/17 08:30 Calcium 9.0 mg/dL (8.4-10.2) 05/02/17 08:30 Troponin T < 0.010 ng/mL (0.00-0.029) 04/30/17 23:52 Urine Color Red (Yellow) 05/03/17 21:00 Urine Turbidity Cloudy (Clear) 05/03/17 21:00 Urine pH 7.0 (5.0-7.0) 05/03/17 21:00 Ur Specific [place] 1.005 (1.003-1.030) 05/03/17 21:00 Urine Protein 100 mg/dl mg/dL (Negative) 05/03/17 21:00 Urine Glucose (UA) 150 mg/dL (Negative) 05/03/17 21:00 Urine Ketones Negative mg/dL (Negative) 05/03/17 21:00 Urine Blood Moderate (Negative) A 05/03/17 21:00 Urine Nitrite Negative (Negative) 05/03/17 21:00 Ur Reducing Substances Not Reportable 05/03/17 21:00 Urine Bilirubin Negative (Negative) 05/03/17 21:00 Urine Ictotest Not Reportable 05/03/17 21:00 Urine Urobilinogen < 0.2 mg/dL (<2.0) 05/03/17 21:00 Ur Leukocyte Esterase Negative (Negative) 05/03/17 21:00 Urine WBC (Auto) 14.0 /HPF (0.0-6.0) H 05/03/17 21:00 Urine RBC (Auto) 13.0 /HPF (0.0-6.0) 05/03/17 21:00 Urine Bacteria (Auto) 4+ /HPF (Negative) 05/03/17 21:00 - Imaging and Cardiology CT scan - abdomen: image reviewed (cyst in bladder) CT scan - pelvis: image reviewed
[2017-05-04] MEDS: LEVAQUIN PO SCH (19:28)
[2017-05-04] MEDS: ARICEPT PO SCH (21:28)
[2017-05-05] MEDS: IMDUR PO SCH (10:00)
[2017-05-05] MEDS: LOPRESSOR PO SCH ×3 (10:00→23:48)
[2017-05-05] MEDS ORDERED: NACL 0.9% 1000 ML 1,000 ML ONE (12:07)
[2017-05-05] MEDS ORDERED: PEPCID IV ONE (12:07)
--- NOTE | 2017-05-05 12:16 | Anesthesia Day of Surgery ---
Anesthesia Day of Surgery - Day of Surgery Patient Examined: Yes Patient H&P Reviewed: Yes Patient is NPO: Yes Beta Blockers: Yes
[2017-05-05] MEDS: NACL 0.9% 1000 ML 1,000 ML IV SCH ×2 (12:20→15:24)
--- NOTE | 2017-05-05 12:20 | Anesthesia Consultation ---
Anesthesia Consult and Med Hx Date of service: 05/05/17 - Airway Anesthetic Teeth Evaluation: Poor (some missing teeth) ROM Head & Neck: Adequate Mental/Hyoid Distance: Adequate Mallampati Class: Class II Intubation Access Assessment: Probably Good - Pulmonary Exam CTA: Yes - Cardiac Exam Cardiac Exam: RRR - Pre-Operative Health Status ASA Pre-Surgery Classification: ASA3 Proposed Anesthetic Plan: General - Pulmonary Hx Smoking: Yes (quit a time ago) COPD: Yes (uses symbicort and inhaler; nebulizer treatment in preop) - Cardiovascular System Hx Hypertension: Yes Hx Heart Attack/AMI: No Hx Cardia Arrhythmia: No Hx Pacemaker: No - Central Nervous System Hx Neuromuscular Disorder: Yes (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
[2017-05-05] MEDS ORDERED: SUBLIMAZE ONE (12:21)
[2017-05-05] MEDS ORDERED: DIPRIVAN 10 MG/ML IV ONE (12:21)
[2017-05-05] MEDS ORDERED: NACL 0.9% IR ONE (12:27)
[2017-05-05] MEDS ORDERED: OMNIPAQUE 300 MG/50 ML (CATH LAB) IV ONE (12:27)
[2017-05-05] MEDS ORDERED: WATER FOR IRRIG STERILE IR ONE (12:27)
[2017-05-05] MEDS ORDERED: ePHEDrine SULFATE ONE (12:51)
[2017-05-05] MEDS ORDERED: NEO SYNEPHRINE/NS Syringe(OR USE) IV ONE (13:00)
[2017-05-05] MEDS ORDERED: PEPCID IV NR (13:00)
[2017-05-05] MEDS ORDERED: ZOFRAN ONE (13:01)
[2017-05-05] MEDS ORDERED: XYLOCAINE MPF 2% ONE (13:07)
--- NOTE | 2017-05-05 13:41 | Post Operative Note ---
Pre-op diagnosis: gross hematuria Post-op diagnosis: other (bladder lesion) Procedure: cysto, rpg, clot evacuation, bladder bx & fulgeration Anesthesia: GETA Surgeon: JD OROURKE Estimated blood loss: 50-100ml Pathology: list Specimen disposition: to lab Condition: stable (bladder bx) Disposition: PACU
[2017-05-05] MEDS ORDERED: NACL 0.9% 2,000 ML ONE (14:16)
--- NOTE | 2017-05-05 14:40 | Progress Note ---
Assessment and Plan Assessment and plan: 6 YO Male with HTN, CVA, COPD, Dementia present to ED for evaluation. Pt unable to provide history, but history taken from daughter who is at bedside. Pt daughter states that patient has compalined of pain in his chest after his most recent fall. Pt has become increasingly weak and confused over the past 2 months with worsening symptoms over the past week. Pt admits to subjective fever , but no reports of chills, NVD, syncope, vertigo, seizures, skin rashes, head trauma, or recent ill contacts. Pt seen and evaluated in ED and found to have suprapubic tenderness on exam. Hematuria: cystoscopy today BPH. Urology consult NOTED. Precipitateous drop in hemoglobin with anemia. Likely secondary to hematuria. We'll monitor closely. Left lung nodule, with right subscapular soft tissue density- CT chest. Patient unable to get MRI due to claustrophobia. Patient again states that this has been present for years. Would defer to primary care physician for follow-up outpatient management. Metabolic Encephalopathy: Probably baseline due to Dementia. IMPROVED History of dementia: Alzheimer's versus vascular. Questionable history of old stroke. Patient moves all his extremities History of hypertension: Continue beta lizzie COPD: Continue albuterol neb treatments as needed. Continue Symbicort Leukopenia: Resolved Dehydration: Resolved History Interval history: Patient seen and examined today, in no acute distress, still with hematuria Hospitalist Physical - Physical exam Narrative exam: VITAL SIGNS: Reviewed. GENERAL: The patient appeared normally developed otherwise cachetic. Vital signs as documented. HEAD: No signs of head trauma. Temporal wasting EYES: Pupils are equal. Extraocular motions intact. EARS: Hearing grossly intact. MOUTH: Oropharynx is normal. NECK: No adenopathy, no JVD. CHEST: Chest with clear breath sounds bilaterally. No wheezes, rales, or rhonchi. CARDIAC: Regular rate and rhythm. S1 and S2, without murmurs, gallops, or rubs. VASCULAR: No Edema. Peripheral pulses normal and equal in all extremities. ABDOMEN: Soft, without detectable tenderness. No sign of distention. No rebound or guarding, and no masses palpated. Bowel Sounds normal. MUSCULOSKELETAL: Good range of motion of all major joints. Extremities without clubbing, cyanosis or edema. NEUROLOGIC EXAM: Alert and oriented x 2. No focal sensory or strength deficits. Speech normal. Follows commands. PSYCHIATRIC: Mood normal. SKIN: No rash or lesions. - Constitutional Vitals: Temp Pulse Resp BP Pulse Ox 97.4 F L 76 14 157/75 95 05/05/17 14:15 05/05/17 14:30 05/05/17 14:30 05/05/17 14:30 05/05/17 14:30 General appearance: Present: no acute distress Results - Labs CBC & Chem 7: 05/04/17 09:26 05/02/17 08:30 Labs: Laboratory Last Values WBC 5.0 K/mm3 (4.5-11.0) 05/02/17 08:30 RBC 4.60 M/mm3 (3.65-5.03) 05/02/17 08:30 Hgb 9.9 gm/dl (11.8-15.2) L 05/04/17 09:26 Hct 30.5 % (35.5-45.6) L 05/04/17 09:26 MCV 76 fl (84-94) L 05/02/17 08:30 MCH 24 pg (28-32) L 05/02/17 08:30 MCHC 32 % (32-34) 05/02/17 08:30 RDW 16.3 % (13.2-15.2) H 05/02/17 08:30 Plt Count 169 K/mm3 (140-440) 05/02/17 08:30 Lymph % (Auto) 33.5 % (13.4-35.0) 04/30/17 17:00 [place] % (Auto) 12.8 % (0.0-7.3) H 04/30/17 17:00 Eos % (Auto) 3.7 % (0.0-4.3) 04/30/17 17:00 Baso % (Auto) 1.3 % (0.0-1.8) 04/30/17 17:00 Lymph # 0.9 K/mm3 (1.2-5.4) L 04/30/17 17:00 [place] # 0.3 K/mm3 (0.0-0.8) 04/30/17 17:00 Eos # 0.1 K/mm3 (0.0-0.4) 04/30/17 17:00 Baso # 0.0 K/mm3 (0.0-0.1) 04/30/17 17:00 Seg Neutrophils % 48.7 % (40.0-70.0) 04/30/17 17:00 Seg Neutrophils # 1.3 K/mm3 (1.8-7.7) L 04/30/17 17:00 Sodium 139 mmol/L (137-145) 05/02/17 08:30 Potassium 4.8 mmol/L (3.6-5.0) 05/02/17 08:30 Chloride 101.6 mmol/L (98-107) 05/02/17 08:30 Carbon Dioxide 24 mmol/L (22-30) 05/02/17 08:30 Anion Gap 18 mmol/L 05/02/17 08:30 BUN 24 mg/dL (9-20) H 05/02/17 08:30 Creatinine 0.9 mg/dL (0.8-1.5) 05/02/17 08:30 Estimated GFR > 60 ml/min 05/02/17 08:30 BUN/Creatinine Ratio 26.66 % 05/02/17 08:30 Glucose 80 mg/dL (75-100) 05/02/17 08:30 Calcium 9.0 mg/dL (8.4-10.2) 05/02/17 08:30 Troponin T < 0.010 ng/mL (0.00-0.029) 04/30/17 23:52 Urine Color Red (Yellow) 05/03/17 21:00 Urine Turbidity Cloudy (Clear) 05/03/17 21:00 Urine pH 7.0 (5.0-7.0) 05/03/17 21:00 Ur Specific [place] 1.005 (1.003-1.030) 05/03/17 21:00 Urine Protein 100 mg/dl mg/dL (Negative) 05/03/17 21:00 Urine Glucose (UA) 150 mg/dL (Negative) 05/03/17 21:00 Urine Ketones Negative mg/dL (Negative) 05/03/17 21:00 Urine Blood Moderate (Negative) A 05/03/17 21:00 Urine Nitrite Negative (Negative) 05/03/17 21:00 Ur Reducing Substances Not Reportable 05/03/17 21:00 Urine Bilirubin Negative (Negative) 05/03/17 21:00 Urine Ictotest Not Reportable 05/03/17 21:00 Urine Urobilinogen < 0.2 mg/dL (<2.0) 05/03/17 21:00 Ur Leukocyte Esterase Negative (Negative) 05/03/17 21:00 Urine WBC (Auto) 14.0 /HPF (0.0-6.0) H 05/03/17 21:00 Urine RBC (Auto) 13.0 /HPF (0.0-6.0) 05/03/17 21:00 Urine Bacteria (Auto) 4+ /HPF (Negative) 05/03/17 21:00
--- NOTE | 2017-05-05 15:05 | Operative Report ---
PREOPERATIVE DIAGNOSIS: Gross hematuria. POSTOPERATIVE DIAGNOSES: Gross hematuria, bladder lesion. PROCEDURE: Cystoscopy, bilateral retrograde pyelograms, clot evacuation, biopsy of bladder lesion, and fulguration. SURGEON: Kyle Toribio MD ANESTHESIA: General. ESTIMATED BLOOD LOSS: Minimal. FLUIDS: Crystalloid. COMPLICATIONS: No complications. INDICATIONS: This patient is an 86-year-old gentleman. I was consulted in the hospital for evaluation of gross hematuria. CT of abdomen and pelvis revealed an enlarged prostate and possible bladder mass. No other abnormalities. Kidneys were normal. He also has some post-surgical lumbar changes and hardware. DESCRIPTION OF PROCEDURE: The patient was taken to the operative suite, placed in a supine position. After adequate general anesthesia, placed in a dorsal lithotomy position, prepped and draped in a sterile fashion. Pancystourethroscopy was performed with 22-[place] Storz cystoscope. No urethral abnormalities. His prostate was consistent with a TUR defect. The patient had significant clot. A 27-[place] resectoscope, sheath was placed, clot was evacuated out small lesion on the posterior aspect of the bladder. Cold cup biopsy was taken and fulguration. Bilateral retrograde pyelograms were obtained with an 8-[place] Howard catheter and 8 mL of contrast. No filling defects or obstruction. A 23-[place] 3-way catheter was placed on a Ortiz drip. Rectal exam was benign. He was extubated and taken to recovery room in stable condition. JOB# [id number] Sury/YUNG
[2017-05-05] MEDS ORDERED: NACL 0.9% 1,000 ML IR ONE (15:16)
[2017-05-05] MEDS: LEVAQUIN PO SCH (15:25)
[2017-05-05] MEDS ORDERED: NACL 0.9% IR SCH (16:00)
--- NOTE | 2017-05-05 16:55 | Cat Scan Report ---
CT CHEST WITHOUT CONTRAST INDICATION: Left lung nodule. COMPARISON: None similar. FINDINGS: Noncontrast chest CT demonstrates an approximately 8 mm noncalcified left lower lobe nodule, axial image 213, series 2, also seen on relevant images from 05/03/[address] Motion artifact partly degrades exam. No other focal suspicious lung masses suspected. Mild emphysematous changes noted predominantly in the upper lobes. Slight left upper to midlung scarring posteriorly as on axial image 120. Top normal heart size. Left coronary and aortic atherosclerotic calcifications. Anemia not excluded. No effusions. No aortic aneurysm. Assessment of the great vessels and for detecting subtle lymphadenopathy limited due to lack of IV contrast. Grossly unremarkable thyroid. Slight nonspecific esophageal prominence. Streak artifact from upper lumbar hardware degrades exam. Approximately 6 mm gallstone now noted dependently toward the neck. Multiple bilateral renal cysts, the largest approximately 3.5 cm partially imaged on the right, axial image 307. Demineralized bones with few mild spine degenerative changes. CONCLUSION: 1. Approximately 0.8 cm noncalcified left lower lobe solitary nodule is nonspecific with possible etiologies as inflammatory versus metastatic in this patient with bladder mass/neoplasm also not excluded on 05/03/[address] Direct comparison with more remote imaging would be very helpful in this regard, if available. Otherwise followup in approximately 3-6 months towards two-year surveillance, as warranted. 2. Other findings, including mild emphysematous changes, gallstone, renal cysts and lumbar hardware, amongst others, as above. Thank you for the opportunity to participate in this patient's care.
--- NOTE | 2017-05-05 17:40 | Event Note ---
Date: 05/05/17 ok to go home (or assisted care) with woods to big bag/leg bag will remove woods in 3-5 days Barry Craven - daughter informed
--- NOTE | 2017-05-05 18:29 | Post Anesthesia Evaluation ---
- Post Anesthesia Evaluation Patient Participated: Yes Airway Patent: Yes Stable Respiratory Function: Yes Nausea/Vomiting: No Temp > 96.8F: Yes Pain Manageable: Yes Adequeate Hydration: Yes Anesthesia Complications: No Block Receding Appropriately: Not Applicable Patient on Ventilator: No
[2017-05-06] MEDS: ARICEPT PO SCH ×2 (00:04→22:21)
--- NOTE | 2017-05-06 09:04 | Progress Note ---
Subjective Date of service: 05/06/17 Interval history: Patient awake and responsive. Somewhat incoherent due to dementia. No obvious anesthetic complications. Objective - Constitutional Vitals: Vital Signs - 12hr 05/05/17 05/05/17 05/06/17 23:31 23:48 07:38 Temperature 97.8 F 98 F Pulse Rate 57 L 57 L 83 Respiratory 20 18 Rate Blood Pressure 150/77 150/77 156/71 O2 Sat by Pulse 94 Oximetry - Labs CBC & Chem 7: 05/04/17 09:26 05/02/17 08:30
--- NOTE | 2017-05-06 09:15 | Discharge Summary ---
Providers - Providers Date of Admission: 04/30/17 23:52 Date of discharge: 05/06/17 Attending physician: PATRICIA SCHWARTZ MD 04/30/17 23:55 Consult to Case Management [CONS] Routine Services Needed at Discharge: Other Notified:: miguel lewis Additional Physician Instructions: please send out for placement as per family request 05/01/17 13:25 Physical Therapy Evaluation and Treat [CONS] Routine Comment: PT USES CANE Reason For Exam: PT HAS MULTIPLE FALLS AT HOME 05/02/17 17:18 Consult to Dietitian/Nutrition [CONS] Routine Physician Instructions: malnurished Reason For Exam: Reason for Consult: Malnutrition 05/03/17 13:13 Consult to Physician [CONS] Routine Consulting Provider: JD OROURKE Reason For Exam: Gross Hematuria Place consult to:: office Notified:: yes Phone number called:: [phone] If yes, spoke with:: edin Time called:: 15:20 Primary care physician: [employer] Hospitalization Reason for admission: Dementia Condition: Stable Hospital course: 86 YO Male with HTN, CVA, COPD, Dementia present to ED for evaluation. Pt unable to provide history, but history taken from daughter who is at bedside. Pt daughter states that patient has companied of pain in his chest after his most recent fall. Pt has become increasingly weak and confused over the past 2 months with worsening symptoms over the past week. Pt admits to subjective fever , but no reports of chills, NVD, syncope, vertigo, seizures, skin rashes, head trauma, or recent ill contacts. Pt seen and evaluated in ED and found to have suprapubic tenderness on exam. Pain on the chest was reproducible and no evidence of rib fracture was noted. The patient did not require a stress test and also was noted with gross hematuria for which he underwent a cystoscopy with urology, no gross findings indicating Malignancy was noted, but will follow with Urology. Chest imaging was showing 0.8cm non calcified left lower lobe solitary nodule was noted and recommended to have 3-6 months repeat imaging. Discharge Diagnosis Gross Hematuria BPH Atypical chest pain secondary to Fall, Musculoskeletal Metabolic Encephalopathy History of dementia Alzheimer's Dementia Hypertension COPD Leukopenia Dehydration Disposition: DC/[place]-03 SNF W [facility] Time spent for discharge: 35 mins Core Measure Documentation - Palliative Care Palliative Care/ Comfort Measures: Not Applicable - Core Measures Any of the following diagnoses?: none - VTE Discharge Requirements Deep Vein Thrombosis/Pulmonary Embolism Present on Admission: No Exam - Physical Exam Narrative exam: VITAL SIGNS: Reviewed. GENERAL: The patient appeared normally developed otherwise cachetic. Vital signs as documented. HEAD: No signs of head trauma. Temporal wasting EYES: Pupils are equal. Extraocular motions intact. EARS: Hearing grossly intact. MOUTH: Oropharynx is normal. NECK: No adenopathy, no JVD. CHEST: Chest with clear breath sounds bilaterally. No wheezes, rales, or rhonchi. CARDIAC: Regular rate and rhythm. S1 and S2, without murmurs, gallops, or rubs. VASCULAR: No Edema. Peripheral pulses normal and equal in all extremities. ABDOMEN: Soft, without detectable tenderness. No sign of distention. No rebound or guarding, and no masses palpated. Bowel Sounds normal. MUSCULOSKELETAL: Good range of motion of all major joints. Extremities without clubbing, cyanosis or edema. NEUROLOGIC EXAM: Alert and oriented x 2. No focal sensory or strength deficits. Speech normal. Follows commands. PSYCHIATRIC: Mood normal. SKIN: No rash or lesions. : three way woods - Constitutional Vitals: Temp Pulse Resp BP Pulse Ox 98 F 83 18 156/71 94 05/06/17 07:38 05/06/17 07:38 05/06/17 07:38 05/06/17 07:38 05/06/17 07:38 Plan Activity: advance as tolerated, fall precautions Diet: low fat Special Instructions: record daily weights, record daily BP diary, physical therapy, occupational therapy Additional Instructions: Remove woods in 3- [address] Keon chan. Follow up with: BERNARDA HASSAN MD [Primary Care Provider] - 3-5 Days JD OROURKE MD [Staff Physician] - 7 Days Prescriptions: Donepezil [Aricept] 5 mg PO QHS #30 tablet Ciprofloxacin HCl [Ciprofloxacin TAB] 250 mg PO BID 3 Days ISOSORBIDE MONOnitrate [Imdur ER] 60 mg PO QDAY #30 tablet
--- NOTE | 2017-05-06 09:41 | Fluoroscopy Report ---
SEVEN FLUOROSCOPIC IMAGES AT BILATERAL RETROGRADE PYELOGRAM: 05/05/17 CLINICAL: FINDINGS: Summer Clerk images . Subsequent images demonstrate retrograde opacification of a normal nondilated right intrarenal collecting system and ureter. For more detail, please refer to the operative report.
[2017-05-06] MEDS: IMDUR PO SCH ×2 (11:55→16:05)
[2017-05-06] MEDS: LOPRESSOR PO SCH ×3 (11:56→22:23)
[2017-05-06] MEDS: LEVAQUIN PO SCH (16:00)
[2017-05-07] MEDS: TYLENOL PO PRN (06:46)
[2017-05-07 07:31] VITALS: BP 132/72
--- NOTE | 2017-05-07 08:31 | Event Note ---
Date: 05/07/17 Discussed with nursing staff patient stable this morning nor acute distress discharge yesterdaY, LEAVING FACIlity at this time due to Bed status at facility
[2017-05-07] MEDS: IMDUR PO SCH (08:35)
[2017-05-07] MEDS: LOPRESSOR PO SCH (08:36)
== END 2017-05-07 09:35 | DRG 668 ==
LOC: ED 16:28 → CC2 23:52 → 2B-SURG 05-05 14:08
PROVIDERS: ADMIT Internal Medicine; ATTEND Internal Medicine
PROC: 0TBB8ZX Excision of Bladder, Via Natural or Artificial Opening Endoscopic, Diagnostic (ICD-10-PCS; principal; 2017-05-05)
PROC: BT141ZZ Fluoroscopy of Kidneys, Ureters and Bladder using Low Osmolar Contrast (ICD-10-PCS; 2017-05-05)
PROC: 0T5B8ZZ Destruction of Bladder, Via Natural or Artificial Opening Endoscopic (ICD-10-PCS; 2017-05-05)
PROC: 0TCB8ZZ Extirpation of Matter from Bladder, Via Natural or Artificial Opening Endoscopic (ICD-10-PCS; 2017-05-05)
DX: R31.0 Gross hematuria (principal); E43 Unspecified severe protein-calorie malnutrition; G92 Toxic encephalopathy; Z68.1 Body mass index [BMI] 19.9 or less, adult; G30.0 Alzheimer's disease with early onset; N39.0 Urinary tract infection, site not specified; R53.81 Other malaise; I10 Essential (primary) hypertension; J44.9 Chronic obstructive pulmonary disease, unspecified; D72.819 Decreased white blood cell count, unspecified; E86.0 Dehydration; N40.0 Benign prostatic hyperplasia without lower urinary tract symptoms; Z86.73 Personal history of transient ischemic attack (TIA), and cerebral infarction without residual deficits; Z82.49 Family history of ischemic heart disease and other diseases of the circulatory system; Z79.82 Long term (current) use of aspirin; Z88.0 Allergy status to penicillin; R91.1 Solitary pulmonary nodule; Z87.891 Personal history of nicotine dependence; F02.80 Dementia in other diseases classified elsewhere, unspecified severity, without behavioral disturbance, psychotic disturbance, mood disturbance, and anxiety; R07.89 Other chest pain
CPT/HCPCS: 36415; 70450; 71250; 74176; 74420; 76770; 80048; 81001; 84484; 85014; 85018; 85025; 85027; 88305; 93005; 93010; 96374; 96375; A4217; C1758; C1769; G8978-GP; G8979-GP; J1956; J2060; J2270; J2370; J2405; J2704; J2765; J3010; J7030; Q9967

== ENCOUNTER 2017-07-15 17:23 | Emergency (ER) | payer MEDICARE ==
[2017-07-15 18:48] LABS: Basophils % (Auto) 1.1 % (0.0-1.8); Eosinophils % (Auto) 2.6 % (0.0-4.3); Hematocrit 28.5 % (35.5-45.6); Hemoglobin 9.2 gm/dl (11.8-15.2); Mean Corpuscular HGB Conc 32 % (32-34); Mean Corpuscular Volume 74 fl (84-94); Red Blood Count 3.83 M/mm3 (3.65-5.03); Red Cell Distribution Width 17.9 % (13.2-15.2); White Blood Count 4.2 K/mm3 (4.5-11.0)
[2017-07-15 18:54] LABS: Mean Corpuscular Hemoglobin 24 pg (28-32)
[2017-07-15 19:30] LABS: Platelet Count 99 K/mm3 (140-440)
[2017-07-15 20:04] LABS: Anion Gap 15 mmol/L; BUN/Creatinine Ratio 26; Blood Urea Nitrogen 18 mg/dL (9-20); Calcium 8.4 mg/dL (8.4-10.2); Carbon Dioxide 26 mmol/L (22-30); Chloride 101.6 mmol/L (98-107); Glucose 77 mg/dL (75-100); Sodium 140 mmol/L (137-145)
[2017-07-15 20:09] LABS: Alanine Aminotransferase 20 units/L (7-56); Albumin 3.9 g/dL (3.9-5); Albumin/Globulin Ratio 1.7 %; Alkaline Phosphatase 58 units/L (35-129); Bilirubin,Direct 0.2 mg/dL (0-0.2); Bilirubin,Indirect 0.7 mg/dL; Total Protein 6.2 g/dL (6.3-8.2)
--- NOTE | 2017-07-15 21:34 | XRay Report ---
FINAL REPORT PROCEDURE: XR CHEST ROUTINE 2V TECHNIQUE: PA and lateral chest radiographs were obtained. CPT 55153 HISTORY: shortness of breath COMPARISON: No prior studies are available for comparison. FINDINGS: Heart: Mild cardiomegaly. Mediastinum/Vessels: Normal. Lungs/Pleural space: Lungs are hyperinflated. There is mild degree blunting of left costophrenic angle. There are no confluent infiltrates or mass lesions 1 centimeter nodule is noted in the left lower lobe corresponding to a similar nodule seen on CT chest of 05/03/2017.. Bony thorax: Jefferson rods are in place. Other: IMPRESSION: COPD 1 centimeter nodule in the left lower lobe Mild degree left pleural effusion.
[2017-07-16] MEDS ORDERED: PROVENTIL IH ONE (03:11)
--- NOTE | 2017-07-16 03:15 | Emergency Department Report ---
ED General Adult HPI - General Chief complaint: Fall Stated complaint: FALL/NECK PAIN Time Seen by Provider: 07/16/17 02:54 Source: patient, family Mode of arrival: Ambulatory Limitations: Altered Mental Status, Other - History of Present Illness Initial comments: Patient is an 87-year-old male past medical history of COPD who presents with neck pain after fall. Patient has had a fall today while he was trying to go to the bathroom he fell and landed on the back of his head. He says his neck pain is a 5 out 10 movement is the concern for extra-axial worse up makes it better. Patient's able to stand and ambulate he was brought in by his daughters due to him having frequent falls. Patient denies having chest pain or having shortness of breath. - Related Data Home Medications Medication Instructions Recorded Confirmed Last Taken Albuterol Sulfate [Ventolin HFA] 2 puff IH Q6HR PRN 05/01/17 05/01/17 Unknown Aspirin 81 mg PO DAILY 05/01/17 05/01/17 Unknown Budesoni/Formotero 160-4.5(Nf) 2 puff IH DAILY 05/01/17 05/01/17 Unknown [Symbicort 160-4.5 (Nf)] Metoprolol Xl [Metoprolol 100 mg PO QDAY 05/01/17 05/01/17 Unknown SUCCINATE ER TAB] Simethicone [Gas Relief] 125 mg PO BID PRN 05/01/17 05/01/17 Unknown Previous Rx's Medication Instructions Recorded Last Taken Type Ciprofloxacin HCl [Ciprofloxacin 250 mg PO BID 3 Days 05/06/17 Unknown Rx TAB] Donepezil [Aricept] 5 mg PO QHS #30 tablet 05/06/17 Unknown Rx ISOSORBIDE MONOnitrate [Imdur ER] 60 mg PO QDAY #30 tablet 05/06/17 Unknown Rx Allergies Allergy/AdvReac Type Severity Reaction Status Date / Time Penicillins AdvReac Rash Verified 05/06/17 08:30 ED Review of Systems ROS: Stated complaint: FALL/NECK PAIN Other details as noted in HPI Constitutional: denies: chills, fever Eyes: denies: eye pain, eye discharge, vision change ENT: denies: ear pain, throat pain Respiratory: denies: cough, shortness of breath, wheezing Cardiovascular: denies: chest pain, palpitations Endocrine: no symptoms reported Gastrointestinal: denies: abdominal pain, nausea, diarrhea Genitourinary: denies: urgency, dysuria Musculoskeletal: denies: back pain, joint swelling, arthralgia Skin: denies: rash, lesions Neurological: denies: headache, weakness, paresthesias Psychiatric: denies: anxiety, depression Hematological/Lymphatic: denies: easy bleeding, easy bruising ED Past Medical Hx - Past Medical History Hx Hypertension: Yes Hx CVA: Yes Hx Heart Attack/AMI: No Hx Liver Disease: No Hx Renal Disease: No Hx Sickle Cell Disease: No Hx Seizures: No Hx COPD: Yes (uses symbicort and inhaler; nebulizer treatment in preop) - Surgical History Hx Pacemaker: No Additional Surgical History: hernia,back - Social History Smoking Status: Former Smoker Substance Use Type: None - Medications Home Medications: Home Medications Medication Instructions Recorded Confirmed Last Taken Type Albuterol Sulfate [Ventolin HFA] 2 puff IH Q6HR PRN 05/01/17 05/01/17 Unknown History Aspirin 81 mg PO DAILY 05/01/17 05/01/17 Unknown History Budesoni/Formotero 160-4.5(Nf) 2 puff IH DAILY 05/01/17 05/01/17 Unknown History [Symbicort 160-4.5 (Nf)] Metoprolol Xl [Metoprolol 100 mg PO QDAY 05/01/17 05/01/17 Unknown History SUCCINATE ER TAB] Simethicone [Gas Relief] 125 mg PO BID PRN 05/01/17 05/01/17 Unknown History Ciprofloxacin HCl [Ciprofloxacin 250 mg PO BID 3 Days 05/06/17 Unknown Rx TAB] Donepezil [Aricept] 5 mg PO QHS #30 tablet 05/06/17 Unknown Rx ISOSORBIDE MONOnitrate [Imdur ER] 60 mg PO QDAY #30 tablet 05/06/17 Unknown Rx ED Physical Exam - General Limitations: Altered Mental Status, Other General appearance: alert, in no apparent distress - Head Head exam: Present: atraumatic, normocephalic - Eye Eye exam: Present: normal appearance - ENT ENT exam: Present: mucous membranes moist - Neck Neck exam: Present: normal inspection - Respiratory Respiratory exam: Present: normal lung sounds bilaterally. Absent: respiratory distress - Cardiovascular Cardiovascular Exam: Present: regular rate, normal rhythm. Absent: systolic murmur, diastolic murmur, rubs, gallop - GI/Abdominal GI/Abdominal exam: Present: soft, normal bowel sounds - Rectal Rectal exam: Present: deferred - Extremities Exam Extremities exam: Present: normal inspection - Back Exam Back exam: Present: normal inspection - Neurological Exam Neurological exam: Present: alert, oriented X3 - Psychiatric Psychiatric exam: Present: normal affect, normal mood - Skin Skin exam: Present: warm, dry, intact, normal color. Absent: rash ED Course Vital Signs 07/15/17 07/16/17 07/16/17 17:45 04:08 04:15 Temperature 98 F 97.2 F L Pulse Rate 78 69 Pulse Rate [ 86 Right Middle Lobe] Respiratory 20 20 Rate Respiratory 20 Rate [Right Middle Lobe] Blood Pressure 170/100 Blood Pressure 168/92 [Left] O2 Sat by Pulse 98 100 Oximetry ED Medical Decision Making - Lab Data Result diagrams: 07/15/17 18:10 07/15/17 19:13 Lab Results 07/15/17 07/15/17 07/15/17 Range/Units 18:10 19:13 19:13 WBC 4.2 L (4.5-11.0) K/mm3 RBC 3.83 (3.65-5.03) M/mm3 Hgb 9.2 L (11.8-15.2) gm/dl Hct 28.5 L (35.5-45.6) % MCV 74 L (84-94) fl MCH 24 L (28-32) pg MCHC 32 (32-34) % RDW 17.9 H (13.2-15.2) % Plt Count 99 L (140-440) K/mm3 Lymph % (Auto) 47.6 H (13.4-35.0) % Lipscomb % (Auto) 10.3 H (0.0-7.3) % Eos % (Auto) 2.6 (0.0-4.3) % Baso % (Auto) 1.1 (0.0-1.8) % Lymph # 2.0 (1.2-5.4) K/mm3 Lipscomb # 0.4 (0.0-0.8) K/mm3 Eos # 0.1 (0.0-0.4) K/mm3 Baso # 0.0 (0.0-0.1) K/mm3 Seg Neutrophils % 38.4 L (40.0-70.0) % Seg Neutrophils # 1.6 L (1.8-7.7) K/mm3 Sodium 140 (137-145) mmol/L Potassium 3.0 L (3.6-5.0) mmol/L Chloride 101.6 (98-107) mmol/L Carbon Dioxide 26 (22-30) mmol/L Anion Gap 15 mmol/L BUN 18 (9-20) mg/dL Creatinine 0.7 L (0.8-1.5) mg/dL Estimated GFR > 60 ml/min BUN/Creatinine Ratio 26 % Glucose 77 (75-100) mg/dL Calcium 8.4 (8.4-10.2) mg/dL Total Bilirubin 0.90 (0.1-1.2) mg/dL Direct Bilirubin 0.2 (0-0.2) mg/dL Indirect Bilirubin 0.7 mg/dL AST 21 (5-40) units/L ALT 20 (7-56) units/L Alkaline Phosphatase 58 (35-129) units/L Troponin T < 0.010 (0.00-0.029) ng/mL Total Protein 6.2 L (6.3-8.2) g/dL Albumin 3.9 (3.9-5) g/dL Albumin/Globulin Ratio 1.7 % - Radiology Data Radiology results: report reviewed Chest x-ray: Shows lung nodule - Medical Decision Making Chief medical diagnosis: Subdural bleed Differential medical diagnosis: Cervical sprain, COPD exacerbation, metabolic abnormality CBC, CMP, CT head, CT neck without contrast and albuterol and ipratropium CT imaging is unremarkable laboratory findings are unremarkable I will send patient home with follow-up and gave patient referral for long term care. Discussed plan with patient and patient's family agree with plan. Critical care attestation.: If time is entered above; I have spent that time in minutes in the direct care of this critically ill patient, excluding procedure time. ED Disposition Clinical Impression: Cervicalgia Fall Qualifiers: Encounter type: initial encounter Qualified Code(s): W19.XXXA - Unspecified fall, initial encounter Disposition: TO HOME OR SELFCARE Is pt being admited?: No Does the pt Need Aspirin: No Condition: Stable Instructions: Fall Prevention for Older Adults (ED), Fall Prevention (ED) Referrals: STEWART SHAH MD [Referring] - 3-5 Days
[2017-07-16] MEDS: ATROVENT IH ONE ×2 (04:07→04:08)
--- NOTE | 2017-07-16 04:17 | Cat Scan Report ---
FINAL REPORT EXAM: CT HEAD/BRAIN WO CON HISTORY: head pain s/p fall TECHNIQUE: Routine axial imaging was obtained the brain without IV contrast. Comparison is made to the study of 04/30/2017. FINDINGS: There is moderate generalized atrophy. There is diminished attenuation of the periventricular white matter compatible with chronic microvascular disease changes. There are remote lacunar infarcts in the deep white matter of the right frontal lobe and the right basal ganglia. There is no evidence of acute stroke or hemorrhage. The ventricular system is symmetric in size. The sinuses are clear. There is no evidence of skull fracture. IMPRESSION: Moderate generalized atrophy with chronic ischemic white matter changes. No evidence of acute stroke or hemorrhage. Remote lacunar infarcts in the deep white matter of the right frontal lobe and right basal ganglia.
--- NOTE | 2017-07-16 04:20 | Cat Scan Report ---
FINAL REPORT EXAM: CT CERVICAL SPINE WO CON HISTORY: neck pain after fall TECHNIQUE: Routine axial imaging was obtained the cervical spine with sagittal and coronal reconstructions. FINDINGS: There is severe multilevel disc degeneration extending from the C2-3 level through C6-C7 level with anterior osteophytes. There is canal stenosis at the C4-C5-C5-C6 and C6-C7 levels. There is no evidence of fracture. There is varying degrees of facet arthropathy changes. The pre vertebral soft tissues and C1-C2 articulation otherwise appear intact. IMPRESSION: Extensive arthritic changes with multilevel disc degeneration as described. No evidence acute fracture or soft tissue injury
[2017-07-16 07:55] VITALS: BP 164/89
== END 2017-07-16 06:16 | disposition home or self-care (01) ==
LOC: ED 17:23
DX: M54.2 Cervicalgia (principal); I10 Essential (primary) hypertension; J44.9 Chronic obstructive pulmonary disease, unspecified; Z86.73 Personal history of transient ischemic attack (TIA), and cerebral infarction without residual deficits; Z87.891 Personal history of nicotine dependence; Z88.0 Allergy status to penicillin; Z79.82 Long term (current) use of aspirin
CPT/HCPCS: 36415; 70450; 71020; 72125; 80048; 80074; 84484; 85025; 87040; 93005; 93010; 99285

== ENCOUNTER 2017-11-30 08:31 | Outpatient (CLI) | payer MEDICARE ==
[2017-11-30 09:00] LABS: Hematocrit 31.6 % (35.5-45.6); Hemoglobin 9.8 gm/dl (11.8-15.2); Mean Corpuscular HGB Conc 31 % (32-34); Mean Corpuscular Volume 75 fl (84-94); Platelet Count 133 K/mm3 (140-440); Red Blood Count 4.23 M/mm3 (3.65-5.03)
[2017-11-30 09:19] LABS: Alanine Aminotransferase 19 units/L (7-56); Albumin 3.9 g/dL (3.9-5); BUN/Creatinine Ratio 17; Blood Urea Nitrogen 17 mg/dL (9-20); Calcium 8.6 mg/dL (8.4-10.2); Chol/HDL Ratio 1.96 %; HDL Cholesterol 61 mg/dL (40-59); Hemolysis Index 1; LDL Cholesterol,Direct 51 mg/dL (50-130)
[2017-11-30 09:28] LABS: Mean Corpuscular Hemoglobin 23 pg (28-32); Red Cell Distribution Width 21.3 % (13.2-15.2)
--- NOTE | 2017-12-01 09:57 | Vascular Lab Report ---
LOWER EXTREMITY VENOUS DUPLEX: REASON FOR EXAM: Swelling of the lower extremities. COMMENTS ON THE RIGHT: All veins visualized are freely compressible without evidence of internal echogenicity. Flow is spontaneous and phasic throughout. COMMENTS ON THE LEFT: All veins visualized are freely compressible without evidence of internal echogenicity. Flow is spontaneous and phasic throughout. IMPRESSION: No evidence of acute or chronic deep venous thrombosis in either lower extremity.
== END 2017-11-30 08:32 | disposition home or self-care (01) ==
LOC: VAS 08:31
PROVIDERS: ATTEND Internal Medicine
DX: R60.0 Localized edema (principal); R79.89 Other specified abnormal findings of blood chemistry
CPT/HCPCS: 36415; 80053; 80061; 84436; 84443; 85027; 93970